=== PATIENT | male | born 1965 | race Caucasian/White ===

== ENCOUNTER 2017-12-17 08:12 | Day surgery (SDC) | payer BC ==
[~2017-12-17] VITALS: Ht 180.3 cm; Wt 133.6 kg
[2017-12-17 08:32] VITALS: BP 132/81; PULSE 68; TEMP 98
[2017-12-17] MEDS ORDERED: ZOCOR 20MG20 MG PO (08:38)
[2017-12-17] MEDS ORDERED: HYZAAR 25 MG-101 TAB PO (08:39)
[2017-12-17] MEDS ORDERED: MULTIPLE VITAMI1 TA5 PO (08:39)
[2017-12-17 10:03] VITALS: BP 124/82; PULSE 78; TEMP 97.6
[2017-12-17 10:18] VITALS: BP 106/76; PULSE 78
[2017-12-17 10:33] VITALS: BP 105/76; PULSE 63
== END 2017-12-17 10:45 | disposition home or self-care (01) ==
LOC: SDCO 08:12
DX: Z12.11 Encounter for screening for malignant neoplasm of colon (principal); D12.5 Benign neoplasm of sigmoid colon; K64.0 First degree hemorrhoids; I10 Essential (primary) hypertension; Z79.899 Other long term (current) drug therapy; E78.00 Pure hypercholesterolemia, unspecified
CPT/HCPCS: OP; J2250; J3010; J7030

== ENCOUNTER → 2017-12-31 | Outpatient (CLI) | payer BC ==
[~2017-12-31] MED LIST: HYZAAR 25 MG-101 TAB PO; MULTIPLE VITAMI1 TA5 PO; ZOCOR 20MG20 MG PO
== END ==
LOC: COL.VAS 13:41
DX: M79.662 Pain in left lower leg (principal); R22.42 Localized swelling, mass and lump, left lower limb

== ENCOUNTER → 2020-03-08 | Outpatient (CLI) | payer BC | LOC: COL.RAD | DX: R93.2 Abnormal findings on diagnostic imaging of liver and biliary tract (principal) | CPT/HCPCS: Q9967 ==